=== PATIENT | male | born 1965 | race Caucasian/White ===

== ENCOUNTER 2019-12-11 23:01 | Emergency (ER) | payer BC ==
[2019-12-11] MEDS ORDERED: Sodium Chloride 0.9% 10 ML Syringe FLUSH PRN (23:33)
[2019-12-11] MEDS ORDERED: Ondansetron 4 MG/2 ML SDV IVPUSH ONE (23:33)
[2019-12-11] MEDS ORDERED: Sodium Chloride 0.9% 1,000 ML IV SCH (23:45)
--- NOTE | 2019-12-12 00:12 | EDM.PDOC ---
ED HPI GENERAL MEDICAL PROBLEM - General Chief Complaint: Abdominal Pain Stated Complaint: ABDOMINAL PAIN Time Seen by Provider: 12/11/19 23:25 Source of Information: Reports: Patient, RN Notes Reviewed - History of Present Illness INITIAL COMMENTS - FREE TEXT/NARRATIVE: 54 yr old male with onset of abd pain 2 days ago, across lower abd, fairly steady ache with mild radiation to back. Decreased appetite but not vomiting or diarrha. Has been constipated for the last 2 days. Hx of prior appy. Abdominal Pain Score (Numeric/FACES): 6 - Related Data Allergies Allergy/AdvReac Type Severity Reaction Status Date / Time No Known Allergies Allergy Verified 12/11/19 23:14 Home Meds: Home Meds . [No Known Home Meds] 12/11/19 [History] Past Medical History - Past Surgical History HEENT Surgical History: Reports: Other (See Below) Other HEENT Surgeries/Procedures: broke nose in HS, has surgery for repair GI Surgical History: Reports: Appendectomy Musculoskeletal Surgical History: Reports: Other (See Below) Other Musculoskeletal Surgeries/Procedures:: ligament surgeries to bilateral knees Social & Family History - Tobacco Use Smoking Status *Q: Never Smoker - Caffeine Use Caffeine Use: Reports: Coffee, Soda - Recreational Drug Use Recreational Drug Use: No ED ROS GENERAL - Review of Systems Review Of Systems: See Below Constitutional: Denies: Fever, Chills, Diaphoresis HEENT: Reports: No Symptoms Respiratory: Denies: Shortness of Breath Cardiovascular: Denies: Chest Pain GI/Abdominal: Reports: Abdominal Pain, Constipation, Decreased Appetite, Nausea. Denies: Diarrhea, Hematochezia, Melena, Vomiting Musculoskeletal: Reports: No Symptoms Skin: Reports: No Symptoms Neurological: Reports: No Symptoms ED EXAM, GI/ABD - Physical Exam Exam: See Below General Appearance: Alert, No Apparent Distress Throat/Mouth: Normal Inspection Neck: Supple Respiratory/Chest: No Respiratory Distress, Lungs Clear, Normal Breath Sounds Cardiovascular: Regular Rate, Rhythm GI/Abdominal Exam: Soft, Tender (moderate tenderness LLQ, mild tenderness remainder lower abd). No: Guarding, Rebound Back Exam: No: CVA Tenderness (L), CVA Tenderness (R) Extremities: Normal Inspection, Normal Range of Motion Neurological: Alert, Oriented, No Motor/Sensory Deficits Skin Exam: Warm, Dry, Normal Color, No Rash Course - Vital Signs Last Recorded V/S: Last Vital Signs Temp 98.2 F 12/11/19 23:09 Pulse 57 L 12/11/19 23:09 Resp 16 12/11/19 23:09 BP 138/84 12/11/19 23:09 Pulse Ox 100 12/11/19 23:09 - Orders/Labs/Meds Orders: Active Orders 24 hr Category Date Time Status Peripheral IV Care [RC] . DIRECTED Care 12/11/19 23:33 Active Abdomen 2V AP Flat Upright [CR] Stat Exams 12/11/19 23:55 Taken Peripheral IV Insertion Adult [OM.PC] Stat Oth 12/11/19 23:33 Ordered Labs: Laboratory Tests 12/11/19 12/11/19 12/11/19 Range/Units 23:46 23:46 23:46 WBC 6.11 (4.23-9.07) K/mm3 RBC 4.98 (4.63-6.08) M/mm3 Hgb 14.4 (13.7-17.5) gm/dl Hct 43.9 (40.1-51.0) % MCV 88.2 (79.0-92.2) fl MCH 28.9 (25.7-32.2) pg MCHC 32.8 (32.2-35.5) g/dl RDW Std Deviation 47.3 H (35.1-43.9) fL Plt Count 263 (163-337) K/mm3 MPV 9.2 L (9.4-12.3) fl Neutrophils % (Manual) 60 (40-60) % Band Neutrophils % 0 (0-10) % Lymphocytes % (Manual) 27 (20-40) % Atypical Lymphs % 0 % Monocytes % (Manual) 11 H (2-10) % Eosinophils % (Manual) 2 (0.8-7.0) % Basophils % (Manual) 0 L (0.2-1.2) Platelet Estimate Adequate Plt Morphology Comment Normal RBC Morph Comment Normal Sodium 143 (136-145) mEq/L Potassium 3.7 (3.5-5.1) mEq/L Chloride 106 (98-107) mEq/L Carbon Dioxide 27 (21-32) mEq/L Anion Gap 13.7 (5-15) BUN 8 (7-18) mg/dL Creatinine 1.0 (0.7-1.3) mg/dL Est Cr Clr Drug Dosing 94.84 mL/min Estimated GFR (MDRD) > 60 (>60) mL/min BUN/Creatinine Ratio 8.0 L (14-18) Glucose 116 H (74-106) mg/dL Calcium 8.8 (8.5-10.1) mg/dL Total Bilirubin 0.7 (0.2-1.0) mg/dL AST 17 (15-37) U/L ALT 24 (16-63) U/L Alkaline Phosphatase 70 (46-116) U/L C-Reactive Protein < 0.2 (<1.0) mg/dL Total Protein 6.7 (6.4-8.2) g/dl Albumin 3.7 (3.4-5.0) g/dl Globulin 3.0 gm/dL Albumin/Globulin Ratio 1.2 (1-2) Meds: Medications Discontinued Medications Generic Name Dose Route Start Last Admin Trade Name Freq PRN Reason Stop Dose Admin Sodium Chloride 1,000 mls @ 999 mls/hr 12/11/19 23:45 12/11/19 23:47 Normal Saline IV 999 mls/hr ONETIME SUSAN Administration Magnesium Citrate 296 ml 12/12/19 00:42 12/12/19 00:59 Citrate Of Magnesia PO 12/12/19 00:43 296 ml ONETIME ONE Administration Ondansetron HCl 4 mg 12/11/19 23:33 12/11/19 23:48 Zofran IVPUSH 12/11/19 23:34 4 mg ONETIME ONE Administration Sodium Chloride 10 ml 12/11/19 23:33 12/11/19 23:48 Saline Flush FLUSH 10 ml ASDIRECTED PRN Administration Keep Vein Open - Re-Assessments/Exams Free Text/Narrative Re-Assessment/Exam: 12/12/19 00:38 WBC, CRP nl. Flat and upright abd OK, will send mag citrate home with him, He has been pulling and lifting a lot of calves so this could be muscle strain on top of being more constipated than usual. Departure - Departure Time of Disposition: 00:50 Disposition: Home, Self-Care 01 Condition: Fair Clinical Impression: Abdominal pain Qualifiers: Abdominal location: lower abdomen, unspecified Qualified Code(s): R10.30 - Lower abdominal pain, unspecified Constipation Qualifiers: Constipation type: unspecified constipation type Qualified Code(s): K59.00 - Constipation, unspecified - Discharge Information Instructions: Constipation, Adult, [id number], Abdominal Pain, Adult, Easy-to -Read Referrals: PCP,None [Primary Care Provider] - Forms: ED Department Discharge Additional Instructions: Clear liquids and bland diet as tolerated. Mag citrate, drink about 1/[address] home, drink the remainder of no BM within 6 to 8 hr as expected. Return to ED if symptoms worsening in any way, especially for fever, vomiting or feeling more ill in any other way. Sepsis Event Note - Evaluation Sepsis Screening Result: No Definite Risk - Focused Exam Vital Signs: Vital Signs Temp Pulse Resp BP Pulse Ox 12/11/19 23:09 98.2 F 57 L 16 138/84 100 Date Exam was Performed: 12/12/19 Time Exam was Performed: 01:47 - My Orders Last 24 Hours: My Active Orders 12/11/19 23:33 Peripheral IV Care [RC] . DIRECTED Peripheral IV Insertion Adult [OM.PC] Stat 12/11/19 23:55 Abdomen 2V AP Flat Upright [CR] Stat - Assessment/Plan Last 24 Hours: My Active Orders 12/11/19 23:33 Peripheral IV Care [RC] . DIRECTED Peripheral IV Insertion Adult [OM.PC] Stat 12/11/19 23:55 Abdomen 2V AP Flat Upright [CR] Stat
[2019-12-12] MEDS ORDERED: Magnesium Citrate Solution 296 ML Bottle PO ONE (00:42)
--- NOTE | 2019-12-12 08:31 | CR ---
Abdomen: Supine and upright views of the abdomen were obtained. Scattered gas within small bowel and colon is seen. Single loop of slightly prominent small bowel gas is noted within the right abdomen believed to be within normal limits. Calcifications are seen within the pelvis which are compatible with phleboliths. Slight arterial calcification is noted. Bony structures show nothing acute. No discrete soft tissue abnormality is seen. No free air is seen. Impression: 1. Nothing acute is appreciated on 2 view abdominal x-ray. Diagnostic code #2 This report was dictated in MDT
== END 2019-12-12 01:00 | disposition home or self-care (01) ==
LOC: JD.ED 23:01
DX: K59.00 Constipation, unspecified (principal); Z90.49 Acquired absence of other specified parts of digestive tract
CPT/HCPCS: 36415; 74019; 74019-26; 80053; 85007; 85027; 86140; 96361; 96374; 99284-25; A9270-GY; J2405; J7030